=== PATIENT | female | born 1995 | race Caucasian/White ===

== ENCOUNTER 2017-11-05 19:27 | Emergency (ER) | payer OTHER ==
[~2017-11-05] VITALS: Ht 177.8 cm; Wt 68.2 kg
[2017-11-05 19:35] VITALS: BP 131/92
--- NOTE | 2017-11-05 19:38 | NUR ---
PT RETURNED TO LOBBY
--- NOTE | 2017-11-05 20:23 | NUR ---
PT AMBULATED TO BED 4
--- NOTE | 2017-11-05 20:23 | NUR ---
22/F CAME IN W C/O " I CANNOT REMEMBER IF I TOOK OUT MY CONTACT LENSE YESTERDAY ON BOTH EYES". INTACT VISUAL ACUITY TEST, BUT REPORTS SHE FEELS LIKE SOMETHING IS IN THERE. DENIES PMH
[2017-11-05] MEDS ORDERED: FLUORESCEIN OPTH STRIP 0.6 MG OP ONE (21:00)
[2017-11-05] MEDS ORDERED: TETRACAINE HCL/PF 0.5% OPTH 4 ML BTL OP ONE (21:00)
[2017-11-05 21:58] VITALS: BP 128/72
--- NOTE | 2017-11-05 21:58 | NUR ---
Patient discharged with v/s stable. Written and verbal after care instructions given and explained. Patient alert, oriented and verbalized understanding of instructions. Ambulatory with steady gait. All questions addressed prior to discharge. ID band removed. Patient advised to follow up with PMD. Rx of [id number] OPTH given. Patient educated on indication of medication including possible reaction and side effects. Opportunity to ask questions provided and answered.
== END 2017-11-05 21:58 | disposition home or self-care (01) ==
LOC: MED 19:27
DX: H57.8 Other specified disorders of eye and adnexa (principal)
CPT/HCPCS: 99283